=== PATIENT | female | born 1955 | race Hispanic/Latino ===

== ENCOUNTER → 2022-04-09 | Outpatient (CLI) | payer MEDICARE ==
[~2022-04-09] MED LIST: AMLO5TAB4 PO; ASPI-1197 PO; CALC-1125 PO; FOLI1TAB48 PO; LISI1TAB49 PO; LITH300T4 PO
== END | disposition home or self-care (01) ==
LOC: OIH 08:41
PROVIDERS: ATTEND Internal Medicine Cardiovascular Disease
DX: I08.2 Rheumatic disorders of both aortic and tricuspid valves (principal)
CPT/HCPCS: 93306